=== PATIENT | male | born 1950 | race Caucasian/White ===

== ENCOUNTER 2019-01-10 07:21 | Day surgery (SDC) | payer OTHER ==
[2019-01-01 15:41] VITALS: BMI 24.0
[2019-01-10] MEDS ORDERED: MIDAZOLAM HCL 2 MG/2 ML SINGLE DOSE VIAL ONE (08:21)
[2019-01-10] MEDS ORDERED: PROPOFOL 20 ML ONE (08:21)
[2019-01-10] MEDS ORDERED: DEXAMETHASONE SOD PHOSPHATE 4 MG/1 ML VIAL ONE (08:21)
[2019-01-10] MEDS ORDERED: KETOROLAC TROMETHAMINE 30 MG/1 ML VIAL ONE (08:21)
[2019-01-10] MEDS ORDERED: ONDANSETRON 4 MG/2 ML VIAL ONE (08:21)
[2019-01-10] MEDS ORDERED: SEVOFLURANE 250 ML BTL ONE (08:35)
[2019-01-10] MEDS ORDERED: ONDANSETRON 4 MG/2 ML VIAL IVPUSH PRN (09:00)
[2019-01-10] MEDS ORDERED: oxyCODONE HCL 5 MG TABLET PO PRN (09:00)
[2019-01-10] MEDS ORDERED: LACTATED RINGERS SOLUTION 1,000 ML IV SCH (09:00)
[2019-01-10 11:00] VITALS: BP 122/67; PULSE 68; TEMP 97.9
--- NOTE | 2019-01-10 16:40 | OP ---
DATE OF OPERATION: 21/05/2018 SURGEON: Bertram Biggs M.D. ANESTHESIA: Local with sedation. COMPLICATIONS: None. ESTIMATED BLOOD LOSS: Minimal. INDICATION FOR PROCEDURE: The patient is a 68-year-old male with the above findings, indicated for operative treatment. Risks, benefits, and alternatives were discussed with the patient at length. Proper informed consent was obtained. PROCEDURE: After proper identification of the patient and correct operative site, patient was brought to the operating room and placed supine on the operating table, all bony prominences well padded. Sedation and local anesthesia were given. Left upper extremity was prepped and draped in the usual sterile fashion. A well-padded tourniquet is placed after sterile prep. Esmarch bandage to exsanguinate the left upper extremity inflated to 250 mmHg. Longitudinal incision was made over the A1 jumana of the long finger. The incision was taken sharply through the skin, blunt dissection to subcutaneous tissue. A1 jumana was identified and divided longitudinally. There was thickening of flexor tendons but no further triggering. Patient was asked to flex and extend his finger, and again there was no further triggering. Wound was irrigated and repaired . Sterile dressing was applied. The patient was reversed from anesthesia and brought to the recovery room in stable condition. He tolerated the procedure well. BERTRAM BIGGS M.D. [id number]
== END 2019-01-10 11:05 | disposition home or self-care (01) ==
LOC: FASU 07:21
PROVIDERS: ATTEND Orthopaedic Surgery Hand Surgery
PROC: 0LN80ZZ Release Left Hand Tendon, Open Approach (ICD-10-PCS; principal; 2019-01-10 09:47)
DX: M65.332 Trigger finger, left middle finger (principal); I10 Essential (primary) hypertension; E11.9 Type 2 diabetes mellitus without complications; N40.0 Benign prostatic hyperplasia without lower urinary tract symptoms
CPT/HCPCS: 82962